=== PATIENT | male | born 1960 | race Caucasian/White ===

== ENCOUNTER 2020-09-23 09:34 | Outpatient (REF) | payer OTHER, SELFPAY ==
[2020-09-23 10:22] LABS: MANUAL DIFF FLAG NO
[2020-09-23 10:28] LABS: Basophils Percent Auto 0.6 % (0-2); Eosinophils Absolute Auto 0.3 X10*3/uL (0.0-0.4); Eosinophils Percent Auto 4.8 % (0-4); Hematocrit 47.4 % (42-52); Hemoglobin 15.8 g/dl (14.0-18.0); Imm Gran Abs Auto 0.04 X10*3/uL (0.00-0.03); Imm Gran Pct Auto 0.6 % (0.0-0.4); Lymphocytes Absolute Auto 0.8 X10*3/uL (1.2-4.9); Lymphocytes Percent Auto 11.2 % (20-40); Mean Corpuscular HGB Conc 33.3 g/dl (31.0-36.0); Mean Corpuscular Hemoglobin 28.4 pg (27.0-33.0); Mean Corpuscular Volume 85.1 fL (80-98); Mean Platelet Volume 9.8 fL (9.4-12.4); Monocytes Absolute Auto 0.5 X10*3/uL (0.1-1.2); Monocytes Percent Auto 6.3 % (2-11); Neutrophils Absolute Auto 5.5 X10*3/uL (2.0-8.3); Neutrophils Percent Auto 76.5 % (45-73); Platelet Count 201 X10*3/uL (160-400); Red Blood Count 5.57 X10*6/uL (4.60-5.80); Red Cell Distribution Width 13.6 % (11.0-16.0); White Blood Count 7.1 X10*3/uL (4.8-10.8)
[2020-09-23 10:54] LABS: Alanine Aminotransferase 35 U/L (0-40); Albumin Level 4.6 g/dL (3.5-5.0); Alkaline Phosphatase 77 U/L (39-117); Anion Gap 14 (12-20); Aspartate Amino Transferase 22 U/L (5-37); Bilirubin Total 0.7 mg/dL (0.0-1.0); Blood Urea Nitrogen 15 mg/dL (9-16); Calcium 9.7 mg/dL (8.4-10.2); Carbon Dioxide 30 mmol/L (22-29); Chloride 101 mmol/L (96-108); Cholesterol 230 mg/dL; Estimated Glomerular Filt Rate > 60; Glucose Random 96 mg/dL (60-115); HDL Cholesterol 64 mg/dL; LDL Cholesterol Calculated 134 mg/dl; Potassium 3.9 mmol/l (3.3-5.1); Sodium 141 mmol/L (135-145); Total Protein 7.6 g/dL (6.5-8.0); Triglycerides 160 mg/dL
[2020-09-23 11:14] LABS: Ferritin 52 ng/mL (20-250)
[2020-09-23 11:17] LABS: Estimated Average Glucose 103 mg/dL; Hemoglobin A1c % 5.2 %
== END 2020-09-23 09:35 | disposition home or self-care (01) ==
LOC: HO.LAB 09:34
PROVIDERS: PCP Internal Medicine; Visit Provider Internal Medicine
DX: Z00.00 Encounter for general adult medical examination without abnormal findings (principal); D50.8 Other iron deficiency anemias; E78.2 Mixed hyperlipidemia; M79.18 Myalgia, other site
CPT/HCPCS: 36415; 80053; 80061; 82728; 83036; 85025

== ENCOUNTER 2021-08-02 09:16 | Outpatient (REF) | payer OTHER, SELFPAY ==
[2021-08-02 10:53] LABS: Alanine Aminotransferase 31 U/L (0-40); Albumin Level 4.4 g/dL (3.5-5.0); Alkaline Phosphatase 75 U/L (39-117); Anion Gap 13 (12-20); Aspartate Amino Transferase 25 U/L (5-37); Bilirubin Total 0.5 mg/dL (0.0-1.0); Blood Urea Nitrogen 15 mg/dL (9-16); Calcium 9.8 mg/dL (8.4-10.2); Carbon Dioxide 28 mmol/L (22-29); Chloride 102 mmol/L (96-108); Cholesterol 219 mg/dL; Estimated Glomerular Filt Rate > 60; Glucose Fasting 106 mg/dL (60-99); HDL Cholesterol 63 mg/dL; LDL Cholesterol Calculated 134 mg/dl; Potassium 3.8 mmol/L (3.3-5.1); Sodium 139 mmol/L (135-145); Total Protein 7.4 g/dL (6.5-8.0); Triglycerides 112 mg/dL
[2021-08-02 11:03] LABS: Creatinine Urine 200.08 mg/dL; Protein/Creatinine Ratio, Ur 0.18 (<0.2); Total Protein Urine Random 36 mg/dL (<12)
== END 2021-08-02 09:17 | disposition home or self-care (01) ==
LOC: HO.10HDL 09:16
PROVIDERS: Visit Provider Internal Medicine
DX: Z00.01 Encounter for general adult medical examination with abnormal findings (principal); I10 Essential (primary) hypertension
CPT/HCPCS: 36415; 80053; 80061; 84156

== ENCOUNTER 2022-12-12 09:28 | Outpatient (REF) | payer OTHER, SELFPAY ==
[2022-12-12 10:22] LABS: MANUAL DIFF FLAG NO
[2022-12-12 10:29] LABS: Basophils Percent Auto 0.5 % (0-2); Eosinophils Absolute Auto 0.2 X10*3/uL (0.0-0.4); Eosinophils Percent Auto 3.9 % (0-4); Hematocrit 43.8 % (42.0-52.0); Hemoglobin 14.3 g/dl (14.0-18.0); Imm Gran Abs Auto 0.02 X10*3/uL (0.00-0.03); Imm Gran Pct Auto 0.3 % (0.0-0.4); Lymphocytes Absolute Auto 0.6 X10*3/uL (1.2-4.9); Lymphocytes Percent Auto 9.7 % (20-40); Mean Corpuscular HGB Conc 32.6 g/dl (31.0-36.0); Mean Corpuscular Hemoglobin 25.5 pg (27.0-33.0); Mean Corpuscular Volume 78.2 fL (80.0-98.0); Mean Platelet Volume 10.4 fL (9.4-12.4); Monocytes Absolute Auto 0.4 X10*3/uL (0.1-1.2); Monocytes Percent Auto 6.8 % (2-11); Neutrophils Absolute Auto 4.7 x10*3/uL (2.0-8.3); Neutrophils Percent Auto 78.8 % (45-73); Platelet Count 195 X10*3/uL (160-400); Red Cell Distribution Width 14.8 % (11.0-16.0); White Blood Count 5.9 X10*3/uL (4.8-10.8)
[2022-12-12 11:19] LABS: Alanine Aminotransferase 23 U/L (0-40); Albumin Level 4.2 g/dL (3.5-5.0); Alkaline Phosphatase 73 U/L (39-117); Anion Gap 10 (12-20); Aspartate Amino Transferase 21 U/L (5-37); Bilirubin Total 0.6 mg/dL (0.0-1.0); Blood Urea Nitrogen 14 mg/dL (9-16); Calcium 9.2 mg/dL (8.4-10.2); Carbon Dioxide 28 mmol/L (22-29); Chloride 105 mmol/L (96-108); Cholesterol 203 mg/dL; Estimated Glomerular Filt Rate > 60; Glucose Random 96 mg/dL (60-115); HDL Cholesterol 55 mg/dL; LDL Cholesterol Calculated 111 mg/dl; Potassium 3.9 mmol/L (3.3-5.1); Sodium 139 mmol/L (135-145); Triglycerides 185 mg/dL
[2022-12-12 11:25] LABS: Ferritin 14 ng/mL (20-250); Prostate Specific Antigen Scr 4.49 ng/mL (<0.05-4.0); Thyroid Stimulating Hormone 1.72 uIU/mL (0.32-4.0)
== END 2022-12-12 09:29 | disposition home or self-care (01) ==
LOC: HO.10HDL 09:28
PROVIDERS: Visit Provider Internal Medicine
DX: Z00.01 Encounter for general adult medical examination with abnormal findings (principal); D50.8 Other iron deficiency anemias; E78.00 Pure hypercholesterolemia, unspecified; I10 Essential (primary) hypertension; Z91.148 Patient's other noncompliance with medication regimen for other reason
CPT/HCPCS: 36415; 80053; 80061; 82728; 84153; 84443; 85025